=== PATIENT | female | born 1980 | race Caucasian/White ===

== ENCOUNTER 2016-11-08 22:31 | Emergency (ER) | payer MEDICAID ==
[~2016-11-08] VITALS: Ht 167.6 cm; Wt 90.5 kg
[2016-11-08 22:38] VITALS: Ht 167.6 cm; Wt 90.5 kg
--- NOTE | 2016-11-08 23:12 | ERD ---
ER Documentation Chief Complaint Date/Time DATE: 11/08/16 TIME: 23:11 Chief Complaint left rib pain after doing laundry yesterday HPI 36-year-old female presents the emergency department complaining of left-sided rib pain that is increased when she takes a deep breath. Patient denies any chest pain, she denies any trauma. She denies cough, fevers, estrogen pills, recent traveling. ROS All systems reviewed and are negative except as per history of present illness. Medications Home Meds Active Scripts Ibuprofen* (Motrin*) 600 Mg Tab, 600 MG PO Q6H Y for PAIN AND OR ELEVATED TEMP, #30 TAB Prov:SULTANA BLEVINS PA-C 11/09/16 Allergies Allergies: Coded Allergies: No Known Allergy (Unverified , 11/13/14) PMhx/Soc Medical and Surgical Hx: pt denies Medical Hx, pt denies Surgical Hx Hx Alcohol Use: No Hx Substance Use: No Hx Tobacco Use: No Smoking Status: Never smoker Physical Exam Vitals Vital Signs Date Time Temp Pulse Resp B/P Pulse Ox O2 Delivery O2 Flow Rate FiO2 11/08/16 22:38 99.2 106 20 153/77 98 Physical Exam Const: WD NAD Head: Atraumatic Eyes: Normal Conjunctiva ENT: Normal External Ears, Nose and Mouth. Neck: Full range of motion..~ No meningismus. Resp: Clear to auscultation bilaterally Palpation over the left lower rib cage Cardio: Regular rate and rhythm, no murmurs Abd: Soft, non tender, non distended. Normal bowel sounds Skin: No petechiae or rashes Back: No midline or flank tenderness Ext: No cyanosis, or edema Neur: Awake and alert Psych: Normal Mood and Affect Procedures/MDM Is a 36-year-old female presenting to the emergency department complaining of left sided lower rib pain increased with deep breath since yesterday after she was doing laundry the patient was found to have mild left lower atelectasis. Chest x-ray did not show no evidence of pneumothorax, pleural effusion or infiltrates. Patient has stable vital signs to follow-up with the primary care physician. Prescription for ibuprofen was provided. Discussed return to the ER for any worsening symptoms. She understands any agrees with this plan. Departure Diagnosis: Primary Impression: Atelectasis Additional Impression: Rib pain Condition: Stable SULTANA BLEVINS N. PA-C Nov 08, 2016 23:12
--- NOTE | 2016-11-08 23:57 | RADRPT ---
PROCEDURE: XR Chest. CLINICAL INDICATION: cough TECHNIQUE: Single frontal view of the chest. COMPARISON: None. FINDINGS: The cardiomediastinal silhouette is within normal limits. Mild atelectasis at the left lung base. Th e lungs are otherwise clear. No signs of pleural fluid or pneumothorax are seen. The osseous structu res and soft tissues are unremarkable. IMPRESSION: Mild left lung base atelectasis. RPTAT: [facility] Physician Matheus Date Time Electronically viewed and signed by Physician Matheus on 11/08/2016 23:57 RS/
[2016-11-09] MEDS ORDERED: IBUP-1542 PO (00:02)
[2016-11-09 00:42] VITALS: BP 132/81; PULSE 94; RESP 16
== END 2016-11-09 00:42 | disposition home or self-care (01) ==
LOC: FTE 22:31
DX: J98.11 Atelectasis (principal)
CPT/HCPCS: 71010; Z7502